=== PATIENT | female | born 1970 | race Caucasian/White ===

== ENCOUNTER 2020-05-07 15:42 | Emergency (ER) | payer OTHER, MEDICAID ==
[~2020-05-07] VITALS: Ht 157.5 cm; Wt 112.5 kg
[2020-05-07] MEDS ORDERED: ATORVASTATIN CA10 MG PO (15:58)
[2020-05-07 15:59] LABS: URINE BILIRUBIN NEGATIVE (Negative); URINE BLOOD NEGATIVE (Negative); URINE CLARITY SL CLOUDY; URINE COLOR YELLOW; URINE GLUCOSE-RANDOM 2+ (Negative); URINE KETONES NEGATIVE (Negative); URINE LEUKOCYTES NEGATIVE (Negative); URINE NITRITE NEGATIVE (Negative); URINE PROTEIN NEGATIVE (Negative); URINE UROBILINOGEN 0.2 E.U./dl (0.2-1.0)
[2020-05-07] MEDS ORDERED: LASIX 40 MG TAB40 M2 PO (15:59)
[2020-05-07] MEDS ORDERED: LEXAPRO20 MG PO (15:59)
[2020-05-07] MEDS ORDERED: ESCITALOPRA5 MG/5 ML PO (15:59)
[2020-05-07] MEDS ORDERED: DIAZEPAM 5 MG5 MG PO (15:59)
[2020-05-07] MEDS ORDERED: DOXAZOSIN MESYLA1 MG PO (15:59)
[2020-05-07] MEDS ORDERED: LATUDA40 MG PO (16:00)
[2020-05-07] MEDS ORDERED: GRALISE300 MG PO (16:00)
[2020-05-07] MEDS ORDERED: METFORMIN HCL500 M3 PO (16:00)
[2020-05-07] MEDS ORDERED: KEPPRA 500 MG500 MG PO (16:00)
[2020-05-07] MEDS ORDERED: COZAAR 25 MG TA25 M2 PO (16:00)
[2020-05-07] MEDS ORDERED: POTASSIUM20 PO (16:01)
[2020-05-07] MEDS ORDERED: REQUIP 0.25 M0.25 MG PO (16:01)
[2020-05-07] MEDS ORDERED: SINGULAIR 10 MG10 MG PO (16:01)
[2020-05-07] MEDS ORDERED: TRADJENTA5 MG (16:01)
[2020-05-07] MEDS ORDERED: OMEPRAZOLE40 MG PO (16:01)
[2020-05-07 16:05] LABS: BACTERIA >30 Many /HPF (None Seen); CASTS None Seen /LPF (None Seen); CRYSTALS None Seen /LPF (None Seen); SQUAMOUS >10 Many /LPF (0-3); URINE RBC 0-2 Rare /HPF (0-2); URINE WBC 0-5 Rare /HPF (0-5)
[2020-05-07 16:17] LABS: ABSOLUTE BASOPHILS 0.1 thou/uL (0.0-0.2); ABSOLUTE EOSINOPHILS 0.2 thou/uL (0.0-0.7); ABSOLUTE MONOCYTES 0.5 thou/uL (0.0-1.2); ABSOLUTE NEUTROPHILS 4.5 thou/uL (1.6-8.1); BASOPHILS 1.4 %; EOSINOPHILS 2.4 %; HEMOGLOBIN 9.7 gm/dL (12.0-15.0); LYMPHOCYTES 27.1 %; MCH 24.9 pg (26.0-34.0); MCHC 31.3 g/dL (28.0-37.0); MCV 79.3 fL (80.0-100.0); MONOCYTES 6.7 %; MPV 6.8 fl. (7.2-11.1); NUCLEATED RBCS 0 /100WBC; PLATELET COUNT* 393 thou/uL (150-400); POLYS 62.4 %; RBC 3.91 mil/uL (4.20-5.00); WBC 7.2 thou/uL (4.0-11.0)
[2020-05-07 16:20] LABS: ANION GAP 4 mmol/L (7-16); BUN 14 mg/dL (7-18); CALCIUM 8.1 mg/dL (8.5-10.1); CHLORIDE 101 mmol/L (98-107); CO2 34 mmol/L (21-32); CREATININE 0.9 mg/dL (0.6-1.3); GLUCOSE 247 mg/dL (70-99); POTASSIUM 3.4 mmol/L (3.5-5.1); SODIUM 139 mmol/L (136-145)
[2020-05-07 16:25] LABS: ALBUMIN 3.2 g/dL (3.4-5.0); ALKALINE PHOSPHATASE 59 U/L (46-116); SGOT 19 U/L (15-37); SGPT 33 U/L (30-65); TOTAL PROTEIN 6.7 g/dL (6.4-8.2)
[2020-05-07 16:27] LABS: TOTAL BILIRUBIN < 0.1 mg/dL (<0.1-1.0)
[2020-05-07 16:37] LABS: ANISOCYTOSIS 2+; POIKILOCYTOSIS 1+; POLYCHROMASIA Occasional
[2020-05-07] MEDS ORDERED: ZOFRAN4 MG PO (19:39)
[2020-05-07] MEDS ORDERED: TYLENOL WITH CO1 TA1 PO (19:39)
[2020-05-07 20:11] VITALS: BP 128/74
--- NOTE | 2020-05-09 15:33 | EKG ---
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1970 Requested By: Kajal Manning Order Number: [id number] MD: Christopher Sharif Measurements Intervals [place] Rate: 88 P: 26 W[place]: 162 QRS: 23 QRSD: 106 T: 42 QT: 369 QTc: 447 Interpretive Statements Sinus rhythm Low voltage, precordial leads Abnormal inferior Q waves No previous ECG available for comparison Electronically Signed On 05-09-2020 15:33:34 CDT by Christopher Sharif [email or web address] <ELECTRONICALLY SIGNED> By: Christopher Sharif MD, [facility] 05/09/20 1533 1638 1638 Christopher Sharif MD, [facility] /EPI
== END 2020-05-07 20:11 | disposition home or self-care (01) ==
LOC: M.ERS 15:42
PROVIDERS: Nurse Practitioner Family
DX: R10.11 Right upper quadrant pain (principal); Z88.0 Allergy status to penicillin; Z88.2 Allergy status to sulfonamides; Z88.6 Allergy status to analgesic agent; Z88.8 Allergy status to other drugs, medicaments and biological substances

== ENCOUNTER 2020-05-09 17:40 | Emergency (ER) | payer OTHER, MEDICAID ==
[~2020-05-09] VITALS: Ht 157.5 cm; Wt 112.5 kg
[~2020-05-09 17:40] MED LIST: ATORVASTATIN CA10 MG PO; COZAAR 25 MG TA25 M2 PO; DIAZEPAM 5 MG5 MG PO; DOXAZOSIN MESYLA1 MG PO; ESCITALOPRA5 MG/5 ML PO; GRALISE300 MG PO; KEPPRA 500 MG500 MG PO; LASIX 40 MG TAB40 M2 PO; LATUDA40 MG PO; LEXAPRO20 MG PO; METFORMIN HCL500 M3 PO; OMEPRAZOLE40 MG PO; POTASSIUM20 PO; REQUIP 0.25 M0.25 MG PO; SINGULAIR 10 MG10 MG PO; TRADJENTA5 MG; TYLENOL WITH CO1 TA1 PO; ZOFRAN4 MG PO
[2020-05-09 18:19] LABS: ABSOLUTE BASOPHILS 0.1 thou/uL (0.0-0.2); ABSOLUTE EOSINOPHILS 0.2 thou/uL (0.0-0.7); ABSOLUTE MONOCYTES 0.4 thou/uL (0.0-1.2); ABSOLUTE NEUTROPHILS 4.7 thou/uL (1.6-8.1); BASOPHILS 1.3 %; EOSINOPHILS 2.3 %; HEMATOCRIT 30.7 % (37.0-47.0); HEMOGLOBIN 9.8 gm/dL (12.0-15.0); LYMPHOCYTES 27.7 %; MCH 25.5 pg (26.0-34.0); MCHC 32.1 g/dL (28.0-37.0); MCV 79.4 fL (80.0-100.0); MONOCYTES 5.3 %; MPV 6.6 fl. (7.2-11.1); NUCLEATED RBCS 0 /100WBC; PLATELET COUNT* 379 thou/uL (150-400); POLYS 63.4 %; RBC 3.87 mil/uL (4.20-5.00); RDW-CV 26.1 % (10.5-14.5); WBC 7.4 thou/uL (4.0-11.0)
[2020-05-09 18:29] LABS: CALCIUM 7.9 mg/dL (8.5-10.1); CREATININE 0.7 mg/dL (0.6-1.3); POTASSIUM 3.6 mmol/L (3.5-5.1)
[2020-05-09 18:33] LABS: ALBUMIN 3.1 g/dL (3.4-5.0); TOTAL BILIRUBIN 0.1 mg/dL (<0.1-1.0); TOTAL PROTEIN 6.5 g/dL (6.4-8.2)
[2020-05-09 18:53] LABS: PLATELET ESTIMATE ADEQUATE
[2020-05-09 18:54] LABS: ANISOCYTOSIS 1+; MACROCYTES 1+
[2020-05-09 19:00] LABS: URINE BILIRUBIN NEGATIVE (Negative); URINE BLOOD NEGATIVE (Negative); URINE CLARITY CLEAR; URINE COLOR YELLOW; URINE GLUCOSE-RANDOM NEGATIVE (Negative); URINE KETONES TRACE (Negative); URINE LEUKOCYTES-REFLEX NEGATIVE (Negative); URINE NITRITE-REFLEX NEGATIVE (Negative); URINE PROTEIN TRACE (Negative); URINE SPECIFIC GRAVITY 1.015 (1.005-1.030); URINE UROBILINOGEN 0.2 E.U./dl (0.2-1.0)
[2020-05-09] MEDS ORDERED: NORCO 5-325 TA1 EAC2 PO (21:25)
[2020-05-09 21:35] VITALS: BP 132/74
--- NOTE | 2020-05-10 09:55 | EKG ---
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: : 1970 Requested By: Josue Eckert Order Number: [id number] MD: Ulysses Torrez Measurements Intervals [place] Rate: 87 P: IN: QRS: 21 QRSD: 131 T: 32 QT: 393 QTc: 473 Interpretive Statements sinus rhythm Nonspecific intraventricular conduction delay Abnormal inferior Q waves Artifact in lead(s) I,II,aVR,aVL,aVF,V1,V4,V6 and baseline wander in lead(s) V1 Compared to ECG 05/07/2020 16:38 no change Electronically Signed On 05-10-2020 9:55:01 CDT by Ulysses Torrez [email or web address] <ELECTRONICALLY SIGNED> By: Ulysses Torrez MD, FAC 05/10/20 0955 00 00 Ulysses Torrez MD, [facility] /EPI
== END 2020-05-09 21:36 | disposition home or self-care (01) ==
LOC: M.ERS 17:40
PROVIDERS: Physician Assistant
DX: R10.84 Generalized abdominal pain (principal); R10.31 Right lower quadrant pain; R10.11 Right upper quadrant pain; R11.2 Nausea with vomiting, unspecified; E11.9 Type 2 diabetes mellitus without complications; E78.5 Hyperlipidemia, unspecified; E66.01 Morbid (severe) obesity due to excess calories; K21.9 Gastro-esophageal reflux disease without esophagitis; Z68.42 Body mass index [BMI] 45.0-49.9, adult; Z88.0 Allergy status to penicillin; Z88.2 Allergy status to sulfonamides; Z88.6 Allergy status to analgesic agent; Z88.8 Allergy status to other drugs, medicaments and biological substances

== ENCOUNTER 2020-09-05 23:04 | Inpatient (IN) | payer OTHER, MEDICAID ==
[~2020-09-05] VITALS: Ht 157.5 cm; Wt 123.2 kg
[~2020-09-05 23:04] MED LIST changes: +NORCO 5-325 TA1 EAC2 PO
[2020-09-05 23:08] VITALS: BP 150/88
[2020-09-05 23:36] LABS: BE 2.2 mmol/L (-2 to +3)
[2020-09-05 23:41] LABS: PCO2 63.1 mmHg (35.0-45.0); pH 7.296 (7.340-7.450)
[2020-09-06 00:01] LABS: HEMATOCRIT 36.7 % (37.0-47.0); HEMOGLOBIN 11.6 gm/dL (12.0-15.0); MCH 28.5 pg (26.0-34.0); MCHC 31.6 g/dL (28.0-37.0); MCV 90.2 fL (80.0-100.0); MPV 6.5 fl. (7.2-11.1); NUCLEATED RBCS 0 /100WBC; PLATELET COUNT* 372 thou/uL (150-400); RBC 4.07 mil/uL (4.20-5.00); RDW-CV 15.4 % (10.5-14.5); WBC 13.4 thou/uL (4.0-11.0)
[2020-09-06 00:11] LABS: CALCIUM 8.7 mg/dL (8.5-10.1); CREATININE 0.7 mg/dL (0.6-1.3)
[2020-09-06 00:13] LABS: POTASSIUM 2.9 mmol/L (3.5-5.1)
[2020-09-06 00:22] LABS: ALBUMIN 3.2 g/dL (3.4-5.0); TOTAL BILIRUBIN 0.2 mg/dL (<0.1-1.0); TOTAL PROTEIN 7.1 g/dL (6.4-8.2)
[2020-09-06 00:52] LABS: ABSOLUTE LYMPHOCYTES 1.5 thou/uL (0.8-5.3); ABSOLUTE MONOCYTES 1.3 thou/uL (0.0-1.2); ABSOLUTE NEUTROPHILS 10.6 thou/uL (1.6-8.1)
[2020-09-06 00:53] LABS: PLATELET ESTIMATE ADEQUATE
[2020-09-06 01:31] LABS: URINE BILIRUBIN NEGATIVE (Negative); URINE BLOOD NEGATIVE (Negative); URINE CLARITY CLEAR; URINE COLOR YELLOW; URINE GLUCOSE-RANDOM NEGATIVE (Negative); URINE KETONES NEGATIVE (Negative); URINE LEUKOCYTES-REFLEX NEGATIVE (Negative); URINE NITRITE-REFLEX NEGATIVE (Negative); URINE PROTEIN NEGATIVE (Negative); URINE SPECIFIC GRAVITY <= 1.005 (1.005-1.030); URINE UROBILINOGEN 0.2 E.U./dl (0.2-1.0)
[2020-09-06 01:38] LABS: AMP/METHAMP Negative (Negative); BARBITURATES Negative (Negative); BENZODIAZEPINES POSITIVE (Negative); COCAINE Negative (Negative); METHADONE Negative (Negative); OPIATES Negative (Negative); PCP Negative (Negative); THC Negative (Negative)
[2020-09-06 05:30] VITALS: BP 126/76
[2020-09-06 09:15] LABS: BE 4.1 mmol/L (-2 to +3); PCO2 VENOUS 55.6 mmHg (41.0-51.0); PO2 VENOUS 80.8 mmHg (35.0-45.0)
[2020-09-06 09:26] LABS: CALCIUM 8.8 mg/dL (8.5-10.1); CREATININE 0.8 mg/dL (0.6-1.3)
[2020-09-06 09:29] LABS: MAGNESIUM 1.4 mg/dL (1.8-2.4); PHOSPHORUS* 3.1 mg/dL (2.5-4.9)
[2020-09-06 09:30] VITALS: BP 133/63
[2020-09-06 09:30] LABS: POTASSIUM 4.4 mmol/L (3.5-5.1)
[2020-09-06 09:37] LABS: CHOLESTEROL 153 mg/dL (<200); HDL CHOLESTEROL 67 mg/dL (>40); LDL CHOLESTEROL 77 mg/dL (<100); TC:HDL 2.3 Ratio (Not establshd); TRIGLYCERIDE 45 mg/dL (<150); VLDL 9 mg/dL (<40)
[2020-09-06 09:38] LABS: SERUM ASSESSMENT Clear
--- NOTE | 2020-09-06 09:38 | EKG ---
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[place] : 1970 Requested By: Ezekiel Cazares Order Number: [id number] MD: Danilo Pack Measurements Intervals [place] Rate: 102 P: 40 [place]: 147 QRS: 24 QRSD: 80 T: 163 QT: 396 QTc: 516 Interpretive Statements Sinus tachycardia Low voltage, precordial leads Consider inferior infarct Nonspecific T abnormalities, lateral leads Prolonged QT interval Compared to ECG 05/09/2020 21:01:26 Myocardial infarct finding now present T-wave abnormality now present Prolonged QT interval now present Electronically Signed On 09-06-2020 9:38:20 CARDIOTHORACIC ANESTHESIA TECHNICIAN by Danilo Pack [email or web address] <ELECTRONICALLY SIGNED> By: Danilo Pack MD, FACC 09/06/20 0938 2315 2315 Danilo Pack MD, FAC /EPI
--- NOTE | 2020-09-06 11:37 | NUR ---
UPON ENTERING PT'S ROOM TO GIVE MORNING MEDICATIONS, PT REPORTS THAT SHE NEEDS PAIN MEDICATIONS. PT INFORMED THAT SHE HAS TYLENOL AND LIDOCAINE PATCH ORDERED. PT REPORTS THAT THESE MEDICATIONS DO NOT WORK FOR HER. PT REPORTS THAT THE PROVIDER TOLD HER THAT SHE WOULD BE GIVEN MEDICATIONS AND THAT SHE TAKES OXYCODONE AT HOME. PT WAS REMINDED THAT NO OPIOID MEDICATIONS WOULD BE ORDERED R/T AMS AND HAVING TO HAVE NARCAN ADMINISTERED PER MD NOTES . PT REPORTS THAT BLOOD GLUCOSE WAS THE PROBLEM AND NOT HER MEDICATIONS. PT INFORMED THAT BLOOD GLUCOSE WAS NORMAL UPON ADMISSION TO UNIT. PT REPORTS SHE WOULD LIKE TO SPEAK TO PHYSICIAN. RN COMPLETED MORNING MEDICATIONS AND INFORMED PHYSICIAN OF CONVERSATION WITH PT. PHYSICIAN REPORTS THAT HE WILL COME TALK WITH PT AGAIN ABOUT NOT ADMINISTERING OPIOIDS WITHOUT TRYING OTHER METHODS FIRST.
[2020-09-06 13:30] VITALS: BP 131/78
--- NOTE | 2020-09-06 15:13 | NUR ---
PT C/O ITCHING IN VAGINAL AREA, PT BELIEVES SHE HAS YEAST INFECTION. PASSED ALONG TO UNIT RN.
[2020-09-06 15:15] VITALS: BP 131/78
[2020-09-06 16:30] VITALS: BP 108/50
[2020-09-06 20:00] VITALS: BP 91/40
[2020-09-07 00:39] VITALS: BP 100/53
[2020-09-07 02:06] LABS: GLYCOHEMOGLOBIN (HGB A1C) 7.7 % (4.8-5.6)
[2020-09-07 04:00] VITALS: BP 98/50
--- NOTE | 2020-09-07 05:13 | NUR ---
PT ORIENTED BUT FORGETFUL AT TIMES. UP AD ROYA. O2 AT 4 LITERS NC (ALSO HOME DOSE O2) BIPAP HS. ON CONTINUOUS PULSE OX. O2 SAT IN THE MID TO UPPER 90S. WILL CONTINUE TO MONITOR,
[2020-09-07 06:20] LABS: ABSOLUTE BASOPHILS 0.1 thou/uL (0.0-0.2); ABSOLUTE LYMPHOCYTES 2.1 thou/uL (0.8-5.3); ABSOLUTE MONOCYTES 0.9 thou/uL (0.0-1.2); ABSOLUTE NEUTROPHILS 9.1 thou/uL (1.6-8.1); BASOPHILS 0.5 %; EOSINOPHILS 0.2 %; HEMATOCRIT 33.9 % (37.0-47.0); HEMOGLOBIN 10.8 gm/dL (12.0-15.0); MCH 28.7 pg (26.0-34.0); MCHC 31.9 g/dL (28.0-37.0); MONOCYTES 7.1 %; MPV 6.6 fl. (7.2-11.1); NUCLEATED RBCS 0 /100WBC; PLATELET COUNT* 386 thou/uL (150-400); POLYS 75.2 %; RBC 3.76 mil/uL (4.20-5.00); RDW-CV 15.7 % (10.5-14.5); WBC 12.1 thou/uL (4.0-11.0)
[2020-09-07 06:47] LABS: CALCIUM 8.5 mg/dL (8.5-10.1); CREATININE 0.8 mg/dL (0.6-1.3); MAGNESIUM 1.7 mg/dL (1.8-2.4); POTASSIUM 3.5 mmol/L (3.5-5.1); TOTAL BILIRUBIN 0.2 mg/dL (<0.1-1.0); TOTAL PROTEIN 6.7 g/dL (6.4-8.2)
[2020-09-07 08:21] VITALS: BP 106/60
--- NOTE | 2020-09-07 11:34 | NUR ---
PT IS ALERT AND ORIENTED BUT FORGETFUL THOUGHT SHE TWICE HERE AND GOT CPR TO COME BACK BUT ONLY NARCAN GIVEN TO HELP WAKE HER UP SHE IS STILL PRETTY DROWSY ALL MEDS PRN TO GET PT MORE ALERT AND GET UP MOVING AROUND 4L NC O2 WHICH IS WHAT SHE WEARS AT HOME BIPAP IN ROOM NOT SURE IF SHE WORE IT AT ALL LAST HS PT IS UP SBA TO AD ROYA WHEN MORE ALERT CALL LIGHT IN REACH WILL CONT TO MONITOR AND WAKE PT UP MORE
[2020-09-07 12:00] VITALS: BP 115/60
--- NOTE | 2020-09-07 13:09 | NUR ---
Pt is A&O. Resides at home with her boyfriend and son. Son is Pt's caregiver through her [employer], for 4hrs/day, 7 days per week. Per Pt, she is mostly independent. Pt uses a cane or walker for mobility, primarily uses cane in house and walker in the community. Pt wears home o2 at 4L continuous and also has a trilogy. Pt states that she's not compliant with her trilogy, stating that its currently in her storage unit, son is suppose to be going to get it. Pt is current with [facility] and wants to resume at dc. NO hx of SNF. Anticipate dc tomorrow, goal is to get Pt up and moving today. CM to fax HH resumption orders at nd.
[2020-09-07 14:17] VITALS: BP 123/62
--- NOTE | 2020-09-07 14:17 | NUR ---
PT TRANSFERRED TO 305 REPORT GIVEN TO SAILAJA PAIN PILL GIVEN BEFORE
--- NOTE | 2020-09-07 16:53 | NUR ---
REPORT RECIEVED FROM DALY PARKER. I CONCUR WITH HER DOCUMENTATION. PT MOVED TO ROOM 305. FREQUENTLY USED ITEMS WITHIN REACH. FALL PRECAUTIONS IN PLACE. PT ON 4L NC AT THIS TIME.
[2020-09-07 20:40] VITALS: BP 113/57
[2020-09-08 05:04] LABS: ABSOLUTE BASOPHILS 0.1 thou/uL (0.0-0.2); ABSOLUTE EOSINOPHILS 0.1 thou/uL (0.0-0.7); ABSOLUTE MONOCYTES 0.7 thou/uL (0.0-1.2); ABSOLUTE NEUTROPHILS 8.1 thou/uL (1.6-8.1); BASOPHILS 0.9 %; EOSINOPHILS 0.5 %; HEMOGLOBIN 10.8 gm/dL (12.0-15.0); LYMPHOCYTES 18.1 %; MCH 29.5 pg (26.0-34.0); MCHC 32.7 g/dL (28.0-37.0); MCV 90.3 fL (80.0-100.0); MONOCYTES 6.5 %; MPV 7.1 fl. (7.2-11.1); NUCLEATED RBCS 0 /100WBC; PLATELET COUNT* 382 thou/uL (150-400); RBC 3.66 mil/uL (4.20-5.00); RDW-CV 15.7 % (10.5-14.5)
[2020-09-08 07:40] VITALS: BP 115/71
--- NOTE | 2020-09-08 07:58 | NUR ---
PATIENT HAS RESTED WELL THROUGHOUT THE NIGHT. VSS ON 4L 02 VIA NASAL CANNULA. PATIENT UP WITH ASSIST X 1 TO THE BATHROOM. MEDICATIONS GIVEN ORDERED AND CHARTED. PATIENT ON TRILOGY AT HS. PATIENT ALERT AND ORIENTED X 3-4 AND ANSWERS APPROPRIATELY. IV IN RIGHT UPPER ARM-SL. FALL PRECAUTIONS IN PLACE AND HOURLY ROUNDS MADE. WILL CONTINUE WITH PLAN OF CARE AND NURSING TO MONITOR.
--- NOTE | 2020-09-08 14:06 | NUR ---
SPOKE WITH CHARLENE/[facility] [phone]. SHE SAID TEAM IS RECOMMENDING SNF FOR PT. SHE HAS BEEN IN HOSPITAL FREQUENTLY (SHE STATED 2 TIMES) IN 30 DAY PERIOD. EXPLAINED TO HER THE DID NOT FEEL SNF WOULD BE BEST DISCHARGE PLAN FOR HER AND HE WANTED HER TO GO HOME WITH HH. SHE SPOKE WITH HER BOSS AND SAID THEY COULD ACCEPT HER BACK ON SERVICE AGAIN AT DISCHARGE. TOLD HER IT WOULD MOST LIKELY BE TOMORROW. SHE SAID THAT WOULD BE FINE.
[2020-09-08 14:10] VITALS: BP 115/71
[2020-09-08 15:03] VITALS: BP 126/63
[2020-09-08 16:00] VITALS: BP 125/77
--- NOTE | 2020-09-08 16:35 | NUR ---
PATIENT UP AND SHOWERED WITH ASSISTANCE. UP WITH WALKER AND 02. DR. CANALES NOTIFIED OF CXR RESULTS, ORDERS FOR ONE TIME IV LASIX TO BE GIVEN. INSULIN GIVEN WITH MEALS. OXY IR GIVEN X 1 THIS SHIFT. POSSIBLE DISCHARGE TOMORROW.
[2020-09-08 20:00] VITALS: BP 110/60
[2020-09-09 04:48] LABS: HEMATOCRIT 32.9 % (37.0-47.0); HEMOGLOBIN 10.7 gm/dL (12.0-15.0); MCH 29.1 pg (26.0-34.0); MCHC 32.5 g/dL (28.0-37.0); MCV 89.5 fL (80.0-100.0); MPV 6.8 fl. (7.2-11.1); RBC 3.68 mil/uL (4.20-5.00); RDW-CV 15.9 % (10.5-14.5); WBC 10.5 thou/uL (4.0-11.0)
[2020-09-09 04:59] LABS: CALCIUM 8.9 mg/dL (8.5-10.1); CREATININE 0.7 mg/dL (0.6-1.3); MAGNESIUM 1.9 mg/dL (1.8-2.4); POTASSIUM 3.6 mmol/L (3.5-5.1)
--- NOTE | 2020-09-09 05:42 | NUR ---
Alert and oriented x 4. She has O2 at 4Ln/c and she is stand by assist to the bathroom. Lungs are clear and very diminished in the lower lobes,I.S. was encouraged. vitals stable,she slept well.
[2020-09-09 08:02] VITALS: BP 108/66
[2020-09-09] MEDS ORDERED: AZITHROMYCIN 2250 MG PO (08:51)
[2020-09-09] MEDS ORDERED: CEFDINIR300 MG PO (08:51)
[2020-09-09] MEDS ORDERED: MICONAZOLE 7 S100 M1 VAG (08:51)
[2020-09-09] MEDS ORDERED: PREDNISONE 10 M10 MG PO (08:51)
[2020-09-09 10:55] VITALS: BP 115/71
--- NOTE | 2020-09-09 11:04 | NUR ---
INITIALLY THE PT THOUGHT SHE WOULD NEED CAB VOUCHER AND REQUESTED ONE FROM HER BEDSIDE NURSE. CM ASSESSED AND PT STATED IF SHE IS D/C BEFORE NOON SHE WOULD NOT NEED A CAB. RN COULD NOT GUARANTEE NOON D/C SO CM SEND ORDER TO [facility] TO SEE IF TANK COULD BE DELIVERED FOR TRASNPORT TO HOME. HOWEVER, PT CHANGED HER MIND SINCE HER SON DOES NOT HAVE TO WORK TODAY HE CAN GAS BLENDER AND BRING TANK FROM HOME SO SHE NO LONGER NEEDS CAB VOUCHER OR TANK.
[2020-09-09 11:43] VITALS: BP 115/71
[2020-09-09 13:00] VITALS: BP 115/71
--- NOTE | 2020-09-09 15:00 | NUR ---
PT.SAID SON GOT CALLED TO WORK. CAB VOUCHER GIVEN AND CM CALLED FOR RIDE FOR PT. CALLED [facility]. SHE DELIVERED PORTABLE TANK TO HOSPITAL FOR PT.
--- NOTE | 2020-09-09 15:30 | NUR ---
DISCHARGE PAPERWORK GIVEN TO PT WITH EXPLAIANTION. PT VERBALIZED UNDERSTANDING. PRESCRIPTIONS SENT TO PT PHARMACY BY DR CANALES. PT NOTIFIED. IV ACCESS REMOVED. HOME O2 TANK DELIVERED FOR RIDE HOME. PT TO GO HOME BY TAXI WITH VOUCHER FROM [employer] ADMINISTRATION ANALYST.
== END 2020-09-09 16:17 | disposition home health service (06) | DRG 871 ==
LOC: M.ERS 23:04 → M.TBA-ER 09-06 01:15 → M.2W 09-06 01:15 → M.3W 09-07 14:28
PROVIDERS: Emergency Medicine Emergency Medical Services; Internal Medicine; ADMIT Internal Medicine; ATTEND Internal Medicine
PROC: 5A09357 Assistance with Respiratory Ventilation, Less than 24 Consecutive Hours, Continuous Positive Airway Pressure (ICD-10-PCS; principal; 2020-09-09)
DX: A41.9 Sepsis, unspecified organism (principal); G92 Toxic encephalopathy; J96.01 Acute respiratory failure with hypoxia; J96.02 Acute respiratory failure with hypercapnia; J69.0 Pneumonitis due to inhalation of food and vomit; J15.9 Unspecified bacterial pneumonia; Z68.42 Body mass index [BMI] 45.0-49.9, adult; J44.1 Chronic obstructive pulmonary disease with (acute) exacerbation; E44.1 Mild protein-calorie malnutrition; J44.0 Chronic obstructive pulmonary disease with (acute) lower respiratory infection; T40.601A Poisoning by unspecified narcotics, accidental (unintentional), initial encounter; E66.01 Morbid (severe) obesity due to excess calories; G47.33 Obstructive sleep apnea (adult) (pediatric); E87.6 Hypokalemia; E83.42 Hypomagnesemia; G89.29 Other chronic pain; F41.9 Anxiety disorder, unspecified; E78.5 Hyperlipidemia, unspecified; E11.9 Type 2 diabetes mellitus without complications; K21.9 Gastro-esophageal reflux disease without esophagitis; Z20.828 Contact with and (suspected) exposure to other viral communicable diseases; Y92.89 Other specified places as the place of occurrence of the external cause; Z79.84 Long term (current) use of oral hypoglycemic drugs; Z79.899 Other long term (current) drug therapy; Z88.1 Allergy status to other antibiotic agents; Z88.0 Allergy status to penicillin; Z88.2 Allergy status to sulfonamides; Z88.8 Allergy status to other drugs, medicaments and biological substances; Z87.891 Personal history of nicotine dependence; Z86.73 Personal history of transient ischemic attack (TIA), and cerebral infarction without residual deficits

== ENCOUNTER 2020-10-23 22:42 | Inpatient (IN) | payer OTHER, MEDICAID ==
[~2020-10-23] VITALS: Ht 167.6 cm; Wt 134.7 kg
--- NOTE | ~2020-10-23 | EMS ---
[facility] [address] [place] [address] EMS Patient Care Report Name: HUEY ROA Room: [address]#: [id number] Admission: 10/24/20 Attend Phys: Nanda Lopez MD Discharge: 10/27/20 Date of : [birth year] Report #: [id number] THIS REPORT FOR: //name// Report Transmitted: 11/01/2020 12:11 EMS Care Summary GISEL MATHUR Incident [id number] @ 10/23/2020 21:36 Incident Location [id number] [place] [address] Patient Huey Roa Female, 50 Years 1970 Patient Address [id number] [place] [id number] Patient History Chronic Obstructive Pulmonary Disease (COPD),Type 2 diabetes mellitus,Obesity, unspecified,Anxiety disorder, unspecified,Edema, unspecified,Cholecystectomy,Hyperlipidemia,Gastro-Esophageal Reflux Disease (GERD),Polyneuropathy, unspecified,Other chronic pain, Patient Allergies , Patient Medications Oxygen, Chief Complaint Altered Level of Consciousness Disposition Transported No Lights/Rolla Dispatch Reason Diabetic Problem Transported To [facility] Narrative [facility] WAS DISPATCHED TO A RESIDENCE FOR A 50 YEAR OLD FEMALE WITH AN ALTERED [facility] [address] [place] [address] EMS Patient Care Report Name: HUEY ROA Room: [address]#: [id number] Admission: 10/24/20 Attend Phys: Nanda Lopez MD Discharge: 10/27/20 Date of : 68 Report #: [id number] LEVEL OF CONSCIOUSNESS. UPON ARRIVAL, [facility] AND [facility] PERSONNEL ENTERED THE RESIDENCE AND MADE CONTACT WITH A FEMALE SITTING IN A COMFORTABLE UPRIGHT POSITION ON THE COUCH IN A STUPOROUS STATE WITH UNLABORED RESPIRATIONS AND RECEIVING HOME OXYGEN VIA NASAL CANNULA AT 4LPM. A MALE RESIDENT ON SCENE (THE CALLER) REPORTED WALKING INTO THE ROOM TO FIND HUEY IN AN ALTERED STATE AND WAS UNABLE TO GET HER TO RESPOND. HUEY WOULD OPEN HER EYES AND RESPOND WITH 1 WORD SENTENCES (OR NOISES) WITH CONTINUAL VERBAL STIMULI AND THE OCCASIONAL NEED FOR PAINFUL STIMULI. VITAL SIGNS WERE OBTAINED AND A PRIMARY ASSESSMENT WAS EXECUTED WITH AN OXYGEN SATURATION OF % ON 4 LPM HOME OXYGEN AND PINPOINT PUPILS. NARCAN WAS ADMINISTERED INTRANASALLY CAUSING QUICK IMPROVEMENT IN RESPONSIVENESS AND OXYGEN WAS INCREASED TO 12 LPM VIA NRB. HUEY WAS ABLE TO ANSWER SOME QUESTIONS AND FOLLOW INSTRUCTIONS WITH ASSISTANCE BUT REMAINED LETHARGIC SHE WAS TRANSFERRED OUTSIDE TO THE [facility] VIA STAIRCHAIR WHERE SHE WAS SECURED VIA 5 SAFETY STRAPS PRIOR TO BEING SECURED INTO THE AMBULANCE. WHILE IN THE AMBULANCE, HUEY REPORTED MILD SHORTNESS OF AIR AND DIZZINESS THROUGHOUT THE DAY AND STATED THAT SHE DOESNT REMEMBER EMS ARRIVING AT THE HOUSE. TREATMENTS AND INTERVENTIONS WERE CONTINUED DURING TRANSPORT TO [facility] WITH SOME IMPROVEMENT IN OXYGEN SATURATION AND MENTAL STATUS THOUGH HUEY REMAINED LETHARGIC. UPON ARRIVAL, HUEY WAS REMOVED FROM THE UNIT AND TAKEN INSIDE TO ER 1 WHERE SHE WAS TRANSFERRED LATERALLY ONTO THE ER BED VIA DRAW SHEET. REPORT WAS GIVEN TO THE RECEIVING RN AND CARE WAS TRANSFERRED. [facility] BACK IN SERVICE. Initial Vitals @21:47SpO2: 65, @21:58SpO2: 97, @22:00SpO2: 82, @22:03SpO2: 84, @22:05SpO2: 85, @22:10SpO2: 84, @22:27SpO2: 78, @21:55 @22:03 @22:04 @22:12Temp: 97.82501445451478V, @21:44P: 74,R: 24,BP: 116/50, @22:35P: 89,R: 24,BP: 124/68, @22:72BvFC9: 52, @22:71BgOZ4: 67, @22:98HuVT6: 49, @22:49HuPX8: 61, @22:36KbCS7: 64, @22:56IuNH5: 57, @22:70YpYP4: 57, @22:73YiYX2: 62, @22:37GuRX7: 66, [place] [address] EMS Patient Care Report Name: HUEY ROA Room: [address] IN ..#: [id number] Admission: 10/24/20 Attend Phys: Nanda Lopez MD Discharge: 10/27/20 Date of : 68 Report #: [id number] @21:44GCS: 9, @22:35GCS: 15, @22:10 @21:44Glucose: 215, @22:10Glucose: 260, Assessments @21:44MENTAL:SKIN:HEENT:LUNG SOUNDS:ABDOMEN:PELVIS//GI:EXTREMITIES:PULSE:NEURO: Impression Acute Respiratory Distress (Dyspnea) Procedures @21:49Naloxone - 1.000 Milligrams (mg) - IntranasalResponse: Improved@21:50Other - Medication - 12.000 Liters per Minute (l/min [fluid]) - Non-Rebreather MaskResponse: Improved@22:28Other - Medication - 12.000 Liters per Minute (l/min [fluid]) - InhalationResponse: Improved@22:28Albuterol - 2.500 Milligrams (mg) - InhalationResponse: Improved@22:28Ipratropium - 0.500 Milligrams (mg) - InhalationResponse: Improved@22:37Naloxone - 1.000 Milligrams (mg) - Intravenous (IV)Response: Unchanged@22:10 cc () Site: Antecubital-LeftResponse: UnchangedFailed@22:14 cc () Site: Hand-RightResponse: UnchangedFailed@22:20 cc () Site: Other Peripheral (Not Listed)Response: UnchangedSucceeded@22:03Digital respired carbon dioxide monitoring (regime/therapy)Response: UnchangedSucceeded@22:05Digital respired carbon dioxide monitoring (regime/therapy)Response: UnchangedSucceeded@22:10Digital respired carbon dioxide monitoring (regime/therapy)Response: UnchangedSucceeded@22:12Digital respired carbon dioxide monitoring (regime/therapy)Response: UnchangedSucceeded@22:17Digital respired carbon dioxide monitoring (regime/therapy)Response: UnchangedSucceeded@22:22Digital respired carbon dioxide monitoring (regime/therapy)Response: UnchangedSucceeded@22:22Digital respired carbon dioxide monitoring (regime/therapy)Response: UnchangedSucceeded@22:27Digital respired carbon dioxide monitoring (regime/therapy)Response: UnchangedSucceeded@22:32Digital respired carbon dioxide monitoring (regime/therapy)Response: UnchangedSucceeded@21:553-Lead ECGResponse: UnchangedSucceeded@22:0312-Lead ECGResponse: UnchangedSucceeded@22:0412-Lead ECGResponse: UnchangedSucceeded@22:00Isolation precautions (procedure)Response: UnchangedSucceeded Timeline 21:36,Call Received 21:36,Dispatch Notified 21:36,Psap Call 21:36,Dispatched 21:39,[place] [address] EMS Patient Care Report Name: HUEY ROA Room: [address]#: [id number] Admission: 10/24/20 Attend Phys: Nanda Lopez MD Discharge: 10/27/20 Date of : [birth year] Report #: [id number] 21:42,On Scene 21:44,At Patient 21:44,BP: 116/50 M,PULSE: 74,RR: 24 R,SPO2: Ox,ETCO2: ,BG: ,PAIN: ,GCS: , 21:44,BP: / M,PULSE: ,RR: R,SPO2: Ox,ETCO2: ,BG: ,PAIN: ,GCS: 9, 21:44,BP: / M,PULSE: ,RR: R,SPO2: Ox,ETCO2: ,B,PAIN: ,GCS: , 21:47,BP: / M,PULSE: ,RR: R,SPO2: 65 Ox,ETCO2: ,BG: ,PAIN: ,GCS: , 21:49,Naloxone - 1.000 Milligrams (mg) - Intranasal,Response: Improved 21:50,Other - Medication - 12.000 Liters per Minute (l/min [fluid]) - Non-Rebreather Mask,Response: Improved 21:55,3-Lead ECG,Response: UnchangedSucceeded, 21:55,BP: / M,PULSE: ,RR: R,SPO2: Ox,ETCO2: ,BG: ,PAIN: ,GCS: , 21:58,BP: / M,PULSE: ,RR: R,SPO2: 97 Ox,ETCO2: ,BG: ,PAIN: ,GCS: , 22:00,Isolation precautions (procedure),Response: UnchangedSucceeded, 22:00,BP: / M,PULSE: ,RR: R,SPO2: 82 Ox,ETCO2: ,BG: ,PAIN: ,GCS: , 22:03,Digital respired carbon dioxide monitoring (regime/therapy),Response: UnchangedSucceeded, 22:03,12-Lead ECG,Response: UnchangedSucceeded, 22:03,BP: / M,PULSE: ,RR: R,SPO2: 84 Ox,ETCO2: ,BG: ,PAIN: ,GCS: , 22:03,BP: / M,PULSE: ,RR: R,SPO2: Ox,ETCO2: ,BG: ,PAIN: ,GCS: , 22:03,BP: / M,PULSE: ,RR: R,SPO2: Ox,ETCO2: 52 ,BG: ,PAIN: ,GCS: , 22:04,12-Lead ECG,Response: UnchangedSucceeded, 22:04,BP: / M,PULSE: ,RR: R,SPO2: Ox,ETCO2: ,BG: ,PAIN: ,GCS: , 22:05,Digital respired carbon dioxide monitoring (regime/therapy),Response: UnchangedSucceeded, 22:05,BP: / M,PULSE: ,RR: R,SPO2: 85 Ox,ETCO2: ,BG: ,PAIN: ,GCS: , 22:05,BP: / M,PULSE: ,RR: R,SPO2: Ox,ETCO2: 67 ,BG: ,PAIN: ,GCS: , 22:10, cc Site: Antecubital-Left,Response: UnchangedFailed, 22:10,Digital respired carbon dioxide monitoring (regime/therapy),Response: UnchangedSucceeded, 22:10,BP: / M,PULSE: ,RR: R,SPO2: 84 Ox,ETCO2: ,BG: ,PAIN: ,GCS: , 22:10,BP: / M,PULSE: ,RR: R,SPO2: Ox,ETCO2: 49 ,BG: ,PAIN: ,GCS: , 22:10,BP: / M,PULSE: ,RR: R,SPO2: Ox,ETCO2: ,BG: ,PAIN: ,GCS: , 22:10,BP: / M,PULSE: ,RR: R,SPO2: Ox,ETCO2: ,B,PAIN: ,GCS: , 22:12,Digital respired carbon dioxide monitoring (regime/therapy),Response: UnchangedSucceeded, 22:12,BP: / M,PULSE: ,RR: R,SPO2: Ox,ETCO2: 61 ,BG: ,PAIN: ,GCS: , 22:12,Depart Scene 22:12,BP: / M,PULSE: ,RR: R,SPO2: Ox,ETCO2: ,BG: ,PAIN: ,GCS: , 22:14, cc Site: Hand-Right,Response: UnchangedFailed, 22:17,Digital respired carbon dioxide monitoring (regime/therapy),Response: UnchangedSucceeded, 22:17,BP: / M,PULSE: ,RR: R,SPO2: Ox,ETCO2: 64 ,BG: ,PAIN: ,GCS: , 22:20, cc Site: Other Peripheral (Not Listed),Response: UnchangedSucceeded, 22:22,Digital respired carbon dioxide monitoring (regime/therapy),Response: UnchangedSucceeded, 22:22,Digital respired carbon dioxide monitoring (regime/therapy),Response: [facility] [address] [place] [address] EMS Patient Care Report Name: HUEY ROA Room: [address]#: [id number] Admission: 10/24/20 Attend Phys: Nanda Lopez MD Discharge: 10/27/20 Date of : 68 Report #: [id number] UnchangedSucceeded, 22:22,BP: / M,PULSE: ,RR: R,SPO2: Ox,ETCO2: 57 ,BG: ,PAIN: ,GCS: , 22:22,BP: / M,PULSE: ,RR: R,SPO2: Ox,ETCO2: 57 ,BG: ,PAIN: ,GCS: , 22:27,Digital respired carbon dioxide monitoring (regime/therapy),Response: UnchangedSucceeded, 22:27,BP: / M,PULSE: ,RR: R,SPO2: 78 Ox,ETCO2: ,BG: ,PAIN: ,GCS: , 22:27,BP: / M,PULSE: ,RR: R,SPO2: Ox,ETCO2: 62 ,BG: ,PAIN: ,GCS: , 22:28,Other - Medication - 12.000 Liters per Minute (l/min [fluid]) - Inhalation,Response: Improved 22:28,Albuterol - 2.500 Milligrams (mg) - Inhalation,Response: Improved 22:28,Ipratropium - 0.500 Milligrams (mg) - Inhalation,Response: Improved 22:32,Digital respired carbon dioxide monitoring (regime/therapy),Response: UnchangedSucceeded, 22:32,BP: / M,PULSE: ,RR: R,SPO2: Ox,ETCO2: 66 ,BG: ,PAIN: ,GCS: , 22:35,BP: 124/68 M,PULSE: 89,RR: 24 R,SPO2: Ox,ETCO2: ,BG: ,PAIN: ,GCS: , 22:35,BP: / M,PULSE: ,RR: R,SPO2: Ox,ETCO2: ,BG: ,PAIN: ,GCS: 15, 22:37,Naloxone - 1.000 Milligrams (mg) - Intravenous (IV),Response: Unchanged 22:38,At Destination 22:56,Call Closed Disclaimer v1.1 Copyright 2020 [employer] This EMS Care Summary contains data elements from the applicable legal record (which may be displayed differently). It is designed to provide pertinent information for the following purposes: continuity of care, clinical quality, and state data reporting. The complete legal record is available to ED staff and administrators of the receiving hospital in ES's Patient Tracker. All data is provided "as is."
[~2020-10-23 22:42] MED LIST changes: +AZITHROMYCIN 2250 MG PO; +CEFDINIR300 MG PO; +MICONAZOLE 7 S100 M1 VAG; +PREDNISONE 10 M10 MG PO
[2020-10-23 22:59] VITALS: BP 117/62
[2020-10-23 23:28] LABS: BE 5.3 mmol/L (-2 to +3); PO2 83.3 mmHg (75.0-100.0)
[2020-10-23 23:34] LABS: ABSOLUTE EOSINOPHILS 0.1 thou/uL (0.0-0.7); ABSOLUTE LYMPHOCYTES 2.1 thou/uL (0.8-5.3); ABSOLUTE MONOCYTES 0.6 thou/uL (0.0-1.2); ABSOLUTE NEUTROPHILS 7.5 thou/uL (1.6-8.1); BASOPHILS 0.3 %; HEMATOCRIT 34.9 % (37.0-47.0); HEMOGLOBIN 11.3 gm/dL (12.0-15.0); LYMPHOCYTES 20.1 %; MCH 28.8 pg (26.0-34.0); MCHC 32.5 g/dL (28.0-37.0); MCV 88.5 fL (80.0-100.0); MONOCYTES 5.4 %; MPV 6.9 fl. (7.2-11.1); NUCLEATED RBCS 0 /100WBC; PLATELET COUNT* 340 thou/uL (150-400); POLYS 73.2 %; RBC 3.95 mil/uL (4.20-5.00); RDW-CV 14.8 % (10.5-14.5); WBC 10.3 thou/uL (4.0-11.0)
[2020-10-23 23:35] LABS: PCO2 79.3 mmHg (35.0-45.0); pH 7.259 (7.340-7.450)
[2020-10-23 23:46] LABS: CALCIUM 8.8 mg/dL (8.5-10.1); CREATININE 0.9 mg/dL (0.6-1.3)
[2020-10-23 23:48] LABS: POTASSIUM 2.9 mmol/L (3.5-5.1)
[2020-10-23 23:57] LABS: ALBUMIN 3.1 g/dL (3.4-5.0); MAGNESIUM 1.6 mg/dL (1.8-2.4); TOTAL BILIRUBIN 0.1 mg/dL (<0.1-1.0); TOTAL PROTEIN 6.5 g/dL (6.4-8.2)
[2020-10-24] VITALS (17 sets, daily range): BP systolic 81–155; BP diastolic 39–87
[2020-10-24 00:51] LABS: PROTIME 9.9 Seconds (9.20-11.50)
[2020-10-24 01:50] LABS: BE 4.6 mmol/L (-2 to +3)
[2020-10-24 01:52] LABS: PO2 137.9 mmHg (75.0-100.0); pH 7.096 (7.340-7.450)
--- NOTE | 2020-10-24 02:16 | NUR ---
PATIENT GIVEN 2 OF NARCAN VIA IV AT APPROX 0200. AT THIS TIME, ALERT AND ORIENTED TIMES FOUR. ASKING FOR A TV IN HER ROOM. DAUGHERTY CATHETER PLACED
[2020-10-24 02:17] LABS: URINE BILIRUBIN NEGATIVE (Negative); URINE BLOOD NEGATIVE (Negative); URINE CLARITY CLEAR; URINE COLOR YELLOW; URINE GLUCOSE-RANDOM TRACE (Negative); URINE KETONES NEGATIVE (Negative); URINE LEUKOCYTES-REFLEX NEGATIVE (Negative); URINE NITRITE-REFLEX NEGATIVE (Negative); URINE PROTEIN NEGATIVE (Negative); URINE UROBILINOGEN 0.2 E.U./dl (0.2-1.0)
[2020-10-24 02:34] LABS: INFLUENZA A ANTIGEN Negative (Negative); INFLUENZA B ANTIGEN Negative (Negative)
--- NOTE | 2020-10-24 09:52 | NUR ---
RIGHT BASILIC VESSEL ACCESSED FOR 5 OMANI TRIPLE LUMEN PICC BUT UNABLE TO ADVANCE THE GUIDE WIRE PAST THE AXILLA. NEEDLE WITHDRAWN AND PRESSURE HELD FOR 5 MINUTES WITH GAUZE AND TAPE. LEFT CHEPHALIC VESSEL ACCESSED FOR TRIPLE LUMEN PICC. LINE PRE-TRIMMED TO 40CM AND ADVANCED TO THE ZERO LEON WITH NO RESISTANCE MET. UPPER ARM CIRCUMFERENCE ABOVE INSERTION SITE=20". SHERLOCK MAGNET AND 3CG CONFIRMATION OF TIP TERMINATION AT THE CAVOATRIAL JUNCTION APPRECIATED. GUIDEWIRE REMOIVED, LINE FLUSHED AND INSERTION SITE DRESSED. REPORT GIVEN TO JESSY PARKER.
[2020-10-24 10:23] LABS: AMP/METHAMP Negative (Negative); BARBITURATES Negative (Negative); BENZODIAZEPINES POSITIVE (Negative); COCAINE Negative (Negative); METHADONE Negative (Negative); OPIATES POSITIVE (Negative); PCP Negative (Negative); THC Negative (Negative)
--- NOTE | 2020-10-24 10:27 | EKG ---
[place] [address] ELECTROCARDIOGRAM REPORT Name: HUEY ROA Room: [address] ADM IN .R.#: [id number] Admission: 10/24/20 Attend Phys: Nanda Lopez, Discharge: Date of : 68 Date of Service: 10/23/20 2247 Report #: [id number] THIS REPORT FOR: //name// [facility] ED Test Date: 2020-10-23 Test Time: 22:47:30 Pat Name: HUEY ROA Department: Room: [facility] Gender: F Senior Security Engineer: ROSALINA : 1970 Requested By: Elda Carrion Order Number: [id number] MD: Ulysses Torrez Measurements Intervals [place] Rate: 116 P: 24 RI: 96 QRS: 53 QRSD: 104 T: 73 QT: 445 QTc: 619 Interpretive Statements Sinus tachycardia Low voltage, precordial leads Abnormal inferior Q waves Borderline T wave abnormalities Prolonged QT interval Baseline wander in lead(s) V5 Compared to ECG 09/05/2020 23:15:03 T-wave abnormality still present Electronically Signed On 10-24-2020 10:27:31 MANIFOLD BUILDER by Ulysses Torrez [email or web address] <ELECTRONICALLY SIGNED> By: Ulysses Torrez MD, FACC 10/24/20 1027 46 46 Ulysses Torrez MD, [facility] /EPI
--- NOTE | 2020-10-24 13:10 | NUR ---
Nutrition: BMI 46.4. Pt admitted early this am for OD, respiratory failure. Steriods and other meds reviewed. BG in 300's. K and albumin low, CO2 high. Pt to start heart healthy diet at lunch today. Pt was educated on DM diet in September 2020; wt up from that admit. Assess at low-mild nutrition risk at this time. Rec add CHO controlled diet to current order.
--- NOTE | 2020-10-24 13:55 | 2DMMODE ---
[place] [address] 2 D/M-MODE ECHOCARDIOGRAM Name: JANINAHUEY Room: [address] ADM IN [place].#: [id number] Admission: 10/24/20 Attend Phys: Nanda Lopez, Discharge: Date of : 68 Date of Service: 10/24/20 1355 Report #: [id number] THIS REPORT FOR: cc: FAM - No family physician/PCP FAM - No family physician/PCP Ulysses Torrez MD [facility] ~ APPROVED REPORT Study performed: 10/24/2020 10:32:42 EXAM: Comprehensive 2D, Doppler, and color-flow Echocardiogram Patient Location: In-Patient Room #: 004 Status: routine BSA: 2.33 HR: 114 bpm BP: 127/60 mmHg Rhythm: NSR Other Information Study Quality: Good Indications opiate overdose resp failure 2D Dimensions IVSd: 10.83 (7-11mm) LVOT Diam: 20.83 (18-24mm) LVDd: 51.73 mm PWd: 9.18 (7-11mm) Ascending Ao: 31.00 (22-36mm) LVDs: 31.13 (25-40mm) Aortic Root: 33.23 mm Volumes Left Atrial Volume (Systole) LA ESV Index: 14.70 mL/m2 Aortic Valve AoV Peak Yoseph.: 2.38 m/s AO Peak Gr.: 22.64 mmHg LVOT Max P.04 mmHg AO Mean Gr.: 12.40 mmHg LVOT Mean P.68 mmHg LVOT Max V: 1.50 m/s AO V2 VTI: 28.30 cm LVOT Mean V: 1.13 m/s REBECA (VTI): 2.26 cm2 LVOT V1 VTI: 18.75 [place] [address] 2 D/M-MODE ECHOCARDIOGRAM Name: HUEY ROA Room: [address] IN [facility].#: [id number] Admission: 10/24/20 Attend Phys: Nanda Lopez, Discharge: Date of : 68 Date of Service: 10/24/20 1355 Report #: [id number] Mitral Valve E/A Ratio: 0.83 MV Decel. Time: 97.72 ms MV E Max Yoseph.: 1.00 m/s MV PHT: 28.34 ms MVA (PHT): 7.76 cm2 TDI E/Lateral E': 7.69 Lateral E' Yoseph.: 0.13 m/s Pulmonary Valve PV Peak Yoseph.: 1.74 m/s PV Peak Gr.: 12.05 mmHg Tricuspid Valve RAP Estimate: 5.00 mmHg TR Peak Gr.: 37.11 mmHg RVSP: 42.00 mmHg PA Pressure: 42.00 mmHg Left Ventricle The left ventricle is normal size. There is normal LV segmental wall motion. There is normal left ventricular wall thickness. Left ventricular systolic function is normal. The left ventricular ejection fraction is within the normal range. LVEF is 60-65%. Grade I - abnormal relaxation pattern. Right Ventricle The right ventricle is normal size. The right ventricular systolic function is normal. Atria The left atrium size is normal. The right atrium size is normal. Aortic Valve The aortic valve is normal in structure. No aortic regurgitation is present. There is no aortic valvular stenosis. Mitral Valve The mitral valve is normal in structure. There is no mitral valve regurgitation noted. No evidence of mitral valve stenosis. Tricuspid Valve The tricuspid valve is normal in structure. Trace tricuspid regurgitation. Mod[place] [address] 2 D/M-MODE ECHOCARDIOGRAM Name: HUEY ROA Room: [address] IN [facility]#: [id number] Admission: 10/24/20 Attend Phys: Nanda Lopez, Discharge: Date of : 68 Date of Service: 10/24/20 1355 Report #: [id number] Pulmonic Valve The pulmonary valve is normal in structure. There is no pulmonic valvular regurgitation. Great Vessels The aortic root is normal in size. IVC is normal in size and collapses >50% with inspiration. Pericardium There is no pericardial effusion. <Conclusion> Left ventricular systolic function is normal. The left ventricular ejection fraction is within the normal range. <ELECTRONICALLY SIGNED> By: Ulysses Torrez MD, FACC 10/24/20 1355 1355 1355 Ulysses Torrez MD, FACC /INF
--- NOTE | 2020-10-24 14:08 | NUR ---
PATIENTS CHART REVIEWED FOR CONTRAINDICATIONS. PT, INR AND PLATELETS WITHIN SAFE LEVELS. ULTRASOUND EVALUATION OF RIGHT AND LEFT LUNG BASES SHOW NO SIGN OF PNEUMOTHORAX, PATIENT IN NO RESPIRATORY DISTRESS AND 02 SAT ON 2 LITERS OF N/C= 97%. RIGHT INTERNAL JUGULAR VESSEL OBSERVED PATENT AND COMPRESSIBLE TO THE INOMINATE JUNCTION. TIME OUT PERFORMED [facility] WITH JESSY PARKER. PATIENT PREPPED AND DRAPED WITH ALL INCLUSIVE SERILE J.A.C.C. KIT. 1% LIDOCAINE 1ML SUB-Q GIVEN AT INSERTION SITE. RIGHT IJ CANNULATED WITH #20 SUNI NEEDLE AND GUIDEWIRE PASSED FREELY WITH NO RESISTANCE INTO THE VESSEL. MICRODUCER INCERTED, INNERCANNULA REMOVED AND CENTRAL LINE CATHETER PASSED INTO INTRODUCER WITH NO RESISTANCE MET. LINE FLUSHED WITH GOOD BRISK BLOOD RETURN NOTED, SECURED WITH STATLOCK AND BIOOCCLUSIVE DRESSING APPLIED. POST-PROCEDURE CXR SHOWS LINE TERMINATES IN THE RIGHT VENTRICLE. LINE PULLED BACK 5CM AND RESECURED WITH STERILE DRESSING, CHEST X-RAY SHOWS TIP TERMINATION AT THE CAVOATRIAL JUNCTION. PATIENT TOLERATED PROCEDURE WELL, 02 SATS REMAIN 97% WITH NO RESPIRATORY DISTRESS. REPORT GIVEN TO JESSY PARKER.
--- NOTE | 2020-10-24 16:30 | NUR ---
ICU rounds: On bipap, pulm following. Pt known to this CM from previous hospital stay. Resides at home with her BF and son, son assist with cares and is paid through Pt's [place] [employer] for 4hrs/day,7 days/week. Pt has a cane and walker for mobility. Uses home o2 continuous at 4L and has a trilogy. Hx of [facility]. No hx of SNF. Following.
[2020-10-24] MEDS ORDERED: LIPITOR40 MG PO (22:48)
[2020-10-24] MEDS ORDERED: DIAZEPAM 5 MG5 M1 PO ×2 (22:51)
[2020-10-24] MEDS ORDERED: DIAZEPAM 10 MG10 M2 PO (22:53)
[2020-10-24] MEDS ORDERED: HYDROXYZINE HCL10 M2 PO (23:03)
[2020-10-24] MEDS ORDERED: ISOSORBIDE MONO30 M1 PO (23:05)
[2020-10-24] MEDS ORDERED: METFORMIN HCL500 M3 PO (23:10)
[2020-10-24] MEDS ORDERED: TRADJENTA5 MG PO (23:15)
[2020-10-25] VITALS (11 sets, daily range): BP systolic 112–163; BP diastolic 50–97
[2020-10-25 05:19] LABS: CALCIUM 9.2 mg/dL (8.5-10.1); CREATININE 0.8 mg/dL (0.6-1.3); POTASSIUM 5.1 mmol/L (3.5-5.1)
[2020-10-25 05:28] LABS: HEMATOCRIT 32.5 % (37.0-47.0); HEMOGLOBIN 10.3 gm/dL (12.0-15.0); MCH 28.3 pg (26.0-34.0); MCHC 31.7 g/dL (28.0-37.0); MCV 89.2 fL (80.0-100.0); NUCLEATED RBCS 0 /100WBC; PLATELET COUNT* 345 thou/uL (150-400); RBC 3.65 mil/uL (4.20-5.00); RDW-CV 14.7 % (10.5-14.5); WBC 13.1 thou/uL (4.0-11.0)
[2020-10-25 06:53] LABS: ABSOLUTE LYMPHOCYTES 0.5 thou/uL (0.8-5.3); ABSOLUTE MONOCYTES 0.5 thou/uL (0.0-1.2); ABSOLUTE NEUTROPHILS 12.1 thou/uL (1.6-8.1); ANISOCYTOSIS 1+; PLATELET ESTIMATE ADEQUATE; POIKILOCYTOSIS 1+
--- NOTE | 2020-10-25 13:25 | NUR ---
ICU rounds: Tele status. Remains on 4L o2.
--- NOTE | 2020-10-25 13:53 | NUR ---
pt transfered to room 212 via wheelchair with nursing staff all belongings packed and sent with pt home medication are in pharmacy
--- NOTE | 2020-10-25 20:20 | NUR ---
Pt reports she is feeling much better than when she arrived to hospital. Reports she has been coughing up dark-colored sputum today. Up ad anita in room. VSS. BG 281 at suppertime, improved from 483 at lunch today. Will continue to monitor.
[2020-10-26] VITALS: BP 151/76
[2020-10-26 04:00] VITALS: BP 152/67
[2020-10-26 04:24] LABS: ABSOLUTE LYMPHOCYTES 0.8 thou/uL (0.8-5.3); ABSOLUTE MONOCYTES 0.5 thou/uL (0.0-1.2); BASOPHILS 0.1 %; HEMATOCRIT 31.9 % (37.0-47.0); HEMOGLOBIN 10.5 gm/dL (12.0-15.0); LYMPHOCYTES 6.7 %; MCH 29.1 pg (26.0-34.0); MCHC 32.8 g/dL (28.0-37.0); MCV 88.7 fL (80.0-100.0); MPV 7.1 fl. (7.2-11.1); NUCLEATED RBCS 0 /100WBC; PLATELET COUNT* 348 thou/uL (150-400); POLYS 89.2 %; RDW-CV 14.6 % (10.5-14.5); WBC 12.3 thou/uL (4.0-11.0)
[2020-10-26 05:02] LABS: CALCIUM 9.5 mg/dL (8.5-10.1); CREATININE 0.8 mg/dL (0.6-1.3); POTASSIUM 5.1 mmol/L (3.5-5.1); TOTAL BILIRUBIN 0.1 mg/dL (<0.1-1.0); TOTAL PROTEIN 6.4 g/dL (6.4-8.2)
--- NOTE | 2020-10-26 05:22 | NUR ---
PT ALERT ORIENTED. UP AD ROYA IN ROOM. O2 AT 4 LITERS ALSO HOME DOSE. BIPAP AT HS. PT TOLERATED UNTIL ABOUT 0300 THEN WANTED IT REMOVED. HEAD ACHE AT HS. TYLENOL GIVEN. WCTM
[2020-10-26 08:00] VITALS: BP 133/82
[2020-10-26 11:56] VITALS: BP 157/73
--- NOTE | 2020-10-26 12:43 | NUR ---
Anticipate dc in 1-2 days. Remains on 4L o2, wheezy. Continue ivabx
[2020-10-26 15:48] VITALS: BP 135/64
--- NOTE | 2020-10-26 18:55 | NUR ---
RECEIVED REPORT. ASSUMED CARE OF PT AROUND 0730. AM ASSESSMENT AND VITALS COMPLETED CHARTED. MEDS PER EMAR. PT UP AD ROYA TO BEDSIDE CHAIR AND BATHROOM. PT WITH NAUSEA X 1 THIS SHIFT, RELIEVED WITH ZOFRAN. PLAN IS FOR PT TO DC TOMORROW. PT TOLERATING DIET, INSULIN ADJUSTED. PT CURRENTLY WATCHING TV IN BED. CALL LIGHT IS WITHIN REACH. HOURLY ROUNDING PERFORMED. LOW FALL RISK PRECAUTIONS IN PLACE.
[2020-10-26 20:00] VITALS: BP 136/42
[2020-10-27] VITALS (7 sets, daily range): BP systolic 132–151; BP diastolic 59–82
--- NOTE | 2020-10-27 01:20 | NUR ---
Around 2330 hrs pt declined to wear BIPAP stating her neck hurts and that she's clautrophobic. Indications and contraindications explained to patient, verbalizes understanding.
[2020-10-27 05:14] LABS: ABSOLUTE LYMPHOCYTES 0.9 thou/uL (0.8-5.3); ABSOLUTE MONOCYTES 0.3 thou/uL (0.0-1.2); ABSOLUTE NEUTROPHILS 8.3 thou/uL (1.6-8.1); BASOPHILS 0.1 %; HEMATOCRIT 32.6 % (37.0-47.0); HEMOGLOBIN 10.4 gm/dL (12.0-15.0); MCH 28.5 pg (26.0-34.0); MCV 89.2 fL (80.0-100.0); MONOCYTES 3.6 %; MPV 6.9 fl. (7.2-11.1); NUCLEATED RBCS 0 /100WBC; PLATELET COUNT* 333 thou/uL (150-400); POLYS 87.3 %; RBC 3.65 mil/uL (4.20-5.00); RDW-CV 14.5 % (10.5-14.5); WBC 9.5 thou/uL (4.0-11.0)
[2020-10-27 05:19] LABS: CALCIUM 9.6 mg/dL (8.5-10.1); CREATININE 0.7 mg/dL (0.6-1.3); POTASSIUM 5.1 mmol/L (3.5-5.1)
--- NOTE | 2020-10-27 07:51 | NUR ---
ASSUMED PT CARE AT APPROX 1930. PT IS AWAKE AND ORIENTED X4. PT IS NOT IN DISTRESS, NO DESATURATIONS NOTED ON 4L OF O2/NC. PT IS TRACING SR ON THE PARTITION SETTER. NO ACUTE CHANGES THIS SHIFT. CALL LIGHT WITHIN REACH. HOURLY ROUNDING DONE FOR PT SAFETY.
[2020-10-27] MEDS ORDERED: DOXYCYCLINE 10100 MG PO (09:02)
[2020-10-27] MEDS ORDERED: PREDNISONE 10 M10 MG PO (09:02)
--- NOTE | 2020-10-27 10:02 | NUR ---
ASSUMED CARE OF PT THIS AM AROUND 0715- DELIVERY DRIVER IN PLACE ORDERED, TRACING SR- UPON ASSESSMENT PT NOTED TO BE RESTING IN BED- PT A&O X4- CONT OF B/B- UP AD-ROYA IN ROOM, STEADY GAIT NOTED- DIMINISHED LUNG SOUNDS NOTED- REPORTED NON-PRODUCTIVE COUGH- SOA WITH EXERTION- VSS, O2 SAT 95% ON RA- ABD SOFT/OBESE/NON-TENDER, BS X4 QUADS- LAST BM REPORTED THIS AM- RIGHT IJ NOTED C/D/I, SL; IV ABT GIVEN THIS AM PRESCRIBED- GOOD PO INTAKE NOTED THIS AM WITH BREAKFAST, BS MONITORED WITH SSI AND SCHEDULED INSULIN GIVEN THIS AM- CALL LIGHT AND PERSONAL BELONGINGS WITH IN REACH- PT MAKES NEEDS KNOWN- ALL NEEDS MET AT THIS TIME-WCTM
[2020-10-27] MEDS ORDERED: HUMALOG100 UNIT/1 SUBQ (10:21)
--- NOTE | 2020-10-27 10:32 | NUR ---
Pt discharging home today, HH orders faxed to [facility].
--- NOTE | 2020-10-28 13:52 | CON ---
[address] [address] CONSULTATION Name: JANINAHUEY Sergey Room: [address]#: [id number] Admission: 10/24/20 Attend Phys: Nanda Lopez MD Discharge: 10/27/20 Date of : 68 Report #: [id number] THIS REPORT FOR: cc: FAM - No family physician/PCP FAM - No family physician/PCP ~ Dario Chang MD DATE OF SERVICE: 10/24/2020 HISTORY OF PRESENT ILLNESS: This is a 50-year-old female patient who was seen by me for any etiology for the patient's altered mental status. This patient's records were reviewed. This patient was admitted in September here for confusion. I reviewed those records and she was taking benzodiazepine that time, she had some hypoglycemia, she had CO2 retention, hypokalemia and hypomagnesemia. She improved after Narcan and same thing happened here and she again is having hypercarbia and turpentine farmer is being consulted. Opiate toxicity was expected, but was never proven. REVIEW OF SYSTEMS: Positive for metabolic encephalopathy and COPD exacerbation. She has a history of diabetes, morbid obesity, chronic pain, chronic obstructive pulmonary disease and obstructive sleep apnea. This was the relevant 14-point review of system. She also has a history of anxiety. A 14-point review of system was otherwise noncontributory. PAST MEDICAL HISTORY: Positive for lung problems. FAMILY HISTORY: Unremarkable. SOCIAL HISTORY: She has a prior history of smoking. PHYSICAL EXAMINATION: The patient's examination when it was carried out showed that she was alert, responsive, somewhat poor memory, but she had woken up and she was able to tell me what month was, but overall her memory was poor. Speech looks intact. Cranial nerve examination was mostly unremarkable. She moved all 4 extremities. Her position sense is intact. Reflexes were diminished. There is no meningeal sign. I could not look at the patient's fundus. No carotid bruit was noticed. She does not appear to have any marked edema or cyanosis. She has severe hypercarbia. Cardiac examination is unremarkable. Her vision and hearing looks adequate. No thyroid mass, no carotid bruit. Blood pressure is 119/61, respirations 11, pulse is 108 and temperature is 98.8. IMAGING DATA: She did not have any imaging study. Last blood gases indicate a pCO2 of 129. IMPRESSION AND PLAN: This patient's symptom appeared [place] [address] CONSULTATION Name: HENNY ROAYCE Sergey Room: [address]#: [id number] Admission: 10/24/20 Attend Phys: Nanda Lopez MD Discharge: 10/27/20 Date of : 68 Report #: [id number] increased pCO2. Her screen for benzo and opiate is positive. In combination, that cause a significant respiratory distress. I will suggest getting a CT scan of the head, but we need to await evaluation by Pulmonology and see what they think the cause of the patient's problem is. She does not give any history to suggest any neurological problems which can cause the patient's symptom like myasthenia gravis. Thank you very much for this referral and if you have any questions, please feel free to contact me. <ELECTRONICALLY SIGNED> By: Dario Chang MD 10/28/20 1352 43 Pruben Chang MD /nt
== END 2020-10-27 12:00 | disposition home health service (06) | DRG 917 ==
LOC: M.ERS 22:42 → M.TBA-ER 10-24 02:33 → M.ICU 10-24 02:33 → M.2W 10-24 02:33 → M.ICU 10-24 03:50 → M.2W 10-25 13:56
PROVIDERS: Emergency Medicine; Internal Medicine; ADMIT Internal Medicine; ATTEND Internal Medicine
DX: T40.2X1A Poisoning by other opioids, accidental (unintentional), initial encounter (principal); J96.22 Acute and chronic respiratory failure with hypercapnia; J96.21 Acute and chronic respiratory failure with hypoxia; G92 Toxic encephalopathy; J69.0 Pneumonitis due to inhalation of food and vomit; Z68.42 Body mass index [BMI] 45.0-49.9, adult; E66.2 Morbid (severe) obesity with alveolar hypoventilation; F32.9 Major depressive disorder, single episode, unspecified; E78.5 Hyperlipidemia, unspecified; K21.9 Gastro-esophageal reflux disease without esophagitis; G89.29 Other chronic pain; F41.1 Generalized anxiety disorder; G43.909 Migraine, unspecified, not intractable, without status migrainosus; E11.9 Type 2 diabetes mellitus without complications; Z20.828 Contact with and (suspected) exposure to other viral communicable diseases; Y92.89 Other specified places as the place of occurrence of the external cause; Z90.49 Acquired absence of other specified parts of digestive tract; Z86.73 Personal history of transient ischemic attack (TIA), and cerebral infarction without residual deficits; Z79.84 Long term (current) use of oral hypoglycemic drugs; Z79.899 Other long term (current) drug therapy; Z88.0 Allergy status to penicillin; Z88.2 Allergy status to sulfonamides; Z88.8 Allergy status to other drugs, medicaments and biological substances; Z87.891 Personal history of nicotine dependence; Z23 Encounter for immunization

== ENCOUNTER 2021-06-17 19:33 | Inpatient (IN) | payer OTHER, MEDICAID ==
[~2021-06-17] VITALS: Ht 157.5 cm; Wt 120.7 kg
[~2021-06-17 19:33] MED LIST changes: +DIAZEPAM 10 MG10 M2 PO; +DIAZEPAM 5 MG5 M1 PO; +DOXYCYCLINE 10100 MG PO; +HUMALOG100 UNIT/1 SUBQ; +HYDROXYZINE HCL10 M2 PO; +IMDUR 30 MG TAB30 M1 PO; +LIPITOR40 MG PO; +TRADJENTA5 MG PO
[2021-06-17 19:40] VITALS: BP 107/56
[2021-06-17 19:58] LABS: ABSOLUTE BASOPHILS 0.1 thou/uL (0.0-0.2); ABSOLUTE EOSINOPHILS 0.6 thou/uL (0.0-0.7); ABSOLUTE LYMPHOCYTES 1.8 thou/uL (0.8-5.3); ABSOLUTE MONOCYTES 0.4 thou/uL (0.0-1.2); ABSOLUTE NEUTROPHILS 6.1 thou/uL (1.6-8.1); BASOPHILS 0.7 %; EOSINOPHILS 6.8 %; HEMATOCRIT 32.6 % (37.0-47.0); HEMOGLOBIN 10.5 gm/dL (12.0-15.0); LYMPHOCYTES 20.1 %; MCHC 32.2 g/dL (28.0-37.0); MONOCYTES 4.6 %; MPV 6.8 fl. (7.2-11.1); NUCLEATED RBCS 0 /100WBC; PLATELET COUNT* 321 thou/uL (150-400); POLYS 67.8 %; RBC 3.88 mil/uL (4.20-5.00); RDW-CV 16.1 % (10.5-14.5)
[2021-06-17] MEDS ORDERED: TORADOL 10 MG T10 MG PO (20:06)
[2021-06-17 20:10] LABS: CALCIUM 8.2 mg/dL (8.5-10.1); CREATININE 0.9 mg/dL (0.6-1.3); POTASSIUM 3.6 mmol/L (3.5-5.1)
[2021-06-17 20:19] LABS: ALBUMIN 3.2 g/dL (3.4-5.0); MAGNESIUM 1.4 mg/dL (1.8-2.4); TOTAL BILIRUBIN 0.2 mg/dL (<0.1-1.0); TOTAL PROTEIN 6.3 g/dL (6.4-8.2)
[2021-06-17 23:33] LABS: URINE BILIRUBIN NEGATIVE (Negative); URINE BLOOD NEGATIVE (Negative); URINE CLARITY CLEAR; URINE COLOR YELLOW; URINE GLUCOSE-RANDOM 1+ (Negative); URINE KETONES NEGATIVE (Negative); URINE LEUKOCYTES-REFLEX NEGATIVE (Negative); URINE NITRITE-REFLEX NEGATIVE (Negative); URINE PROTEIN NEGATIVE (Negative); URINE SPECIFIC GRAVITY <= 1.005 (1.005-1.030); URINE UROBILINOGEN 0.2 E.U./dl (0.2-1.0)
[2021-06-18 01:39] LABS: BE 4.8 mmol/L (-2 to +3); PO2 110.7 mmHg (75.0-100.0); pH 7.386 (7.340-7.450)
[2021-06-18 01:43] LABS: PCO2 52.6 mmHg (35.0-45.0)
[2021-06-18 02:46] VITALS: BP 137/67
[2021-06-18 04:10] VITALS: BP 122/65
[2021-06-18 07:19] VITALS: BP 103/45
--- NOTE | 2021-06-18 10:09 | NUR ---
PT GIVEN 1800 ADA DIET BREAKFAST TRAY AT THIS TIME.
--- NOTE | 2021-06-18 10:50 | EKG ---
[place] [address] ELECTROCARDIOGRAM REPORT Name: HUEY ROA Room: [place] [address] ADM IN [facility]#: [id number] Admission: 06/18/21 Attend Phys: Alex Davenport, Discharge: Date of : 68 Date of Service: 06/17/211938 Report #: [id number] THIS REPORT FOR: //name// [facility] ED Test Date: 2021-06-17 Test Time: 19:39:23 Pat Name: HUEYMATT ROA Department: Room: [facility] Gender: F Rn Lactation Consultant: MADELAINE : 1970 Requested By: Elda Carrion Order Number: [id number] MD: Samuel Jones Measurements Intervals [place] Rate: 113 P: 38 GA: 141 QRS: 2 QRSD: 99 T: 8 QT: 343 QTc: 471 Interpretive Statements Sinus tachycardia Inferior infarct, old Compared to ECG 10/23/2020 22:47:30 Myocardial infarct finding now present Inferior Q waves no longer present Q waves no longer present T-wave abnormality no longer present Prolonged QT interval no longer present Electronically Signed On 06-18-2021 10:50:44 CDT by Samuel Jones [email or web address] <ELECTRONICALLY SIGNED> By: Baron Jones MD, [facility] 06/18/21 1050 38 38 Baron Jones MD, [facility] /EPI
[2021-06-18 11:01] LABS: CHOLESTEROL 111 mg/dL (<200); HDL CHOLESTEROL 45 mg/dL (>40); LDL CHOLESTEROL 50 mg/dL (<100); SERUM ASSESSMENT Clear; TC:HDL 2.5 Ratio (Not establshd); TRIGLYCERIDE 81 mg/dL (<150); VLDL 16 mg/dL (<40)
[2021-06-18 11:04] LABS: ALBUMIN 3.1 g/dL (3.4-5.0); CALCIUM 8.3 mg/dL (8.5-10.1); CREATININE 0.7 mg/dL (0.6-1.3); POTASSIUM 3.6 mmol/L (3.5-5.1); TOTAL BILIRUBIN 0.3 mg/dL (<0.1-1.0); TOTAL PROTEIN 6.2 g/dL (6.4-8.2)
[2021-06-18 12:04] VITALS: BP 135/64
--- NOTE | 2021-06-18 13:54 | NUR ---
PT GIVEN REGULAR DIET LUNCH TRAY AT THIS TIME. PT SITTING UPRIGHT AT BEDSIDE EATING.
[2021-06-18 14:14] LABS: URINE BILIRUBIN NEGATIVE (Negative); URINE BLOOD NEGATIVE (Negative); URINE CLARITY CLEAR; URINE COLOR YELLOW; URINE GLUCOSE-RANDOM 3+ (Negative); URINE KETONES NEGATIVE (Negative); URINE LEUKOCYTES-REFLEX NEGATIVE (Negative); URINE NITRITE-REFLEX NEGATIVE (Negative); URINE PROTEIN NEGATIVE (Negative); URINE SPECIFIC GRAVITY <= 1.005 (1.005-1.030); URINE UROBILINOGEN 0.2 E.U./dl (0.2-1.0)
[2021-06-18 16:13] VITALS: BP 122/53
[2021-06-18 21:00] VITALS: BP 128/67
[2021-06-19 01:00] VITALS: BP 118/56
[2021-06-19 05:00] VITALS: BP 122/50
[2021-06-19 06:06] LABS: GLYCOHEMOGLOBIN (HGB A1C) 8.4 % (4.8-5.6)
[2021-06-19 11:10] VITALS: BP 121/68
[2021-06-19 11:44] VITALS: BP 118/64
--- NOTE | 2021-06-19 15:59 | NUR ---
CM COMPLETED THE INITIAL ASSESSMENT WITH THE PT WHO INDICATED SHE LIVES HOME WITH HER S/O AND SON. PT USES CHAIR, GRAB BAR AND WALKER. PTIS CURRENT W/[facility]. PT STATED HER S/O CONTACTED [facility] TO INFORM THEM OF HER ADMISSION. PT DENIES HX WITH SNF. CM TO CONT TO FOLLOW. PT TO [place] W/ HH [place].
[2021-06-19 16:00] VITALS: BP 136/69
[2021-06-19 19:45] VITALS: BP 93/51
[2021-06-20 00:13] VITALS: BP 131/62
[2021-06-20 04:37] VITALS: BP 100/50
--- NOTE | 2021-06-20 06:42 | NUR ---
PT A&O X 4. ON 3.5L O2. C/O CHRONIC BACK PAIN, MORPHINE GIVEN X 2. UP TO BR WITH SBA. PT SLEPT MOST OF THE NIGHT. CALL LIGHT WITHIN REACH. WILL CONTINUE TO MONITOR.
[2021-06-20 08:16] VITALS: BP 102/70
[2021-06-20 09:39] LABS: ABSOLUTE BASOPHILS 0.1 thou/uL (0.0-0.2); ABSOLUTE EOSINOPHILS 0.1 thou/uL (0.0-0.7); ABSOLUTE LYMPHOCYTES 1.5 thou/uL (0.8-5.3); ABSOLUTE MONOCYTES 0.6 thou/uL (0.0-1.2); ABSOLUTE NEUTROPHILS 7.9 thou/uL (1.6-8.1); BASOPHILS 0.6 %; EOSINOPHILS 0.6 %; HEMATOCRIT 32.5 % (37.0-47.0); HEMOGLOBIN 10.2 gm/dL (12.0-15.0); LYMPHOCYTES 15.2 %; MCH 26.9 pg (26.0-34.0); MCHC 31.4 g/dL (28.0-37.0); MCV 85.5 fL (80.0-100.0); MONOCYTES 5.7 %; MPV 6.6 fl. (7.2-11.1); NUCLEATED RBCS 0 /100WBC; POLYS 77.9 %; RDW-CV 16.7 % (10.5-14.5); WBC 10.1 thou/uL (4.0-11.0)
[2021-06-20 09:40] LABS: PLATELET COUNT* 398 thou/uL (150-400)
[2021-06-20 09:41] LABS: CALCIUM 8.6 mg/dL (8.5-10.1); CREATININE 0.9 mg/dL (0.6-1.3); POTASSIUM 3.7 mmol/L (3.5-5.1)
[2021-06-20 12:00] VITALS: BP 105/45
--- NOTE | 2021-06-20 12:08 | NUR ---
Pt discharging to [facility] today. Facility to cotton picker and transport at 3pm. Faxed dc orders. Chart copied. Nurse report number is [phone]. Updated dtr.
--- NOTE | 2021-06-20 14:51 | NUR ---
THIS NURSING SERVICE DIRECTOR IS IN AGREEMENT WITH DOCUMENTATION BY JULIO HENDRICKS FOR THIS DAY. JANAE TEJADAT
[2021-06-20 16:00] VITALS: BP 111/52
[2021-06-20 20:00] VITALS: BP 136/57
[2021-06-21] VITALS: BP 155/85
[2021-06-21 04:00] VITALS: BP 150/81
[2021-06-21 04:22] LABS: CALCIUM 8.5 mg/dL (8.5-10.1); POTASSIUM 4.5 mmol/L (3.5-5.1)
[2021-06-21 04:27] LABS: HEMATOCRIT 33.9 % (37.0-47.0); HEMOGLOBIN 10.4 gm/dL (12.0-15.0); MCH 27.3 pg (26.0-34.0); MCHC 30.8 g/dL (28.0-37.0); MCV 88.6 fL (80.0-100.0); MPV 6.9 fl. (7.2-11.1); RBC 3.82 mil/uL (4.20-5.00); RDW-CV 16.6 % (10.5-14.5); WBC 10.3 thou/uL (4.0-11.0)
[2021-06-21 08:13] VITALS: BP 178/90
[2021-06-21 12:05] VITALS: BP 107/52
[2021-06-21 12:50] VITALS: BP 107/52
--- NOTE | 2021-06-21 12:50 | NUR ---
Anticipate dc today, plan home with HH. CM to fax resumption HH orders to [facility]
[2021-06-21 12:52] VITALS: BP 107/52
--- NOTE | 2021-06-21 18:01 | NUR ---
PT DISCHARGED AT 1750 WAS WHEELED OUT BY STAFF ON 3L NC TO FAMILY CAR. PT GIVEN DISCHARGE INSTRUCTIONS AND ALL BELONGINGS. IV REMOVED FROM RIGHT CHEST. PT SAYS SHE UNDERSTANDS HER DISCHARGE AIJAYY AND [facility] IS GOING TO CALL HER TOMORROW TO SET UP AN APPOINTMENT.
== END 2021-06-21 17:53 | disposition home health service (06) | DRG 191 ==
LOC: M.ERS 19:33 → M.TBA-ER 06-18 02:37 → M.2W 06-18 08:55 → M.TBA-ER 06-19 11:47 → M.2W 06-19 11:56
PROVIDERS: Emergency Medicine; Internal Medicine; ADMIT Internal Medicine; ATTEND Internal Medicine
DX: J44.1 Chronic obstructive pulmonary disease with (acute) exacerbation (principal); E87.2 Acidosis; J96.11 Chronic respiratory failure with hypoxia; Z68.42 Body mass index [BMI] 45.0-49.9, adult; K21.9 Gastro-esophageal reflux disease without esophagitis; M54.9 Dorsalgia, unspecified; G89.29 Other chronic pain; E78.5 Hyperlipidemia, unspecified; G47.33 Obstructive sleep apnea (adult) (pediatric); F41.1 Generalized anxiety disorder; R47.1 Dysarthria and anarthria; E66.01 Morbid (severe) obesity due to excess calories; N28.1 Cyst of kidney, acquired; E11.40 Type 2 diabetes mellitus with diabetic neuropathy, unspecified; G43.909 Migraine, unspecified, not intractable, without status migrainosus; I10 Essential (primary) hypertension; Z20.822 Contact with and (suspected) exposure to COVID-19; Z86.73 Personal history of transient ischemic attack (TIA), and cerebral infarction without residual deficits; Z90.49 Acquired absence of other specified parts of digestive tract; Z79.4 Long term (current) use of insulin; Z79.899 Other long term (current) drug therapy; Z88.1 Allergy status to other antibiotic agents; Z88.0 Allergy status to penicillin; Z88.2 Allergy status to sulfonamides; Z88.8 Allergy status to other drugs, medicaments and biological substances; Z87.891 Personal history of nicotine dependence